=== PATIENT | male | born 1960 | race Two or more races ===

== ENCOUNTER 2016-06-04 05:16 | Inpatient (IN) | payer OTHER ==
[~2016-06-04] VITALS: Ht 177.8 cm; Wt 95.3 kg
[2016-06-04] MEDS ORDERED: CEFAZOLIN SODIUM/DEXTROSE,ISO 50 ML IV ONE (05:57)
[2016-06-04] MEDS ORDERED: IV LR 1000 ML 1,000 ML ONE (05:57)
[2016-06-04] MEDS ORDERED: NEEDLELESS EST SET LARGE BORE 1 EA INFUS.SET MC ONE (05:58)
[2016-06-04] MEDS ORDERED: IV SET PRIMARY 1 EA INFUS.SET MC ONE (05:58)
[2016-06-04] MEDS ORDERED: SECONDARY IV SET 1 EA INFUS.SET MC ONE ×3 (05:58→22:53)
[2016-06-04] MEDS ORDERED: BUPIVACAINE MPF 0.5% W/EPI INJ 30 ML VIAL ONE (06:13)
[2016-06-04] MEDS ORDERED: KETOROLAC TROMETHAMINE INJ 30 MG/ML VIAL ONE (06:13)
[2016-06-04] MEDS ORDERED: BACITRACIN 50000 UNITS/VIAL ONE (06:13)
[2016-06-04] MEDS ORDERED: MIDAZOLAM HCL 2 MG/2ML VIAL ONE (06:41)
[2016-06-04] MEDS ORDERED: FENTANYL PF 100MCG/2ML AMPUL ONE ×2 (06:42→07:38)
[2016-06-04] MEDS ORDERED: ROCURONIUM BROMIDE 50 MG/5 ML ONE (06:53)
[2016-06-04] MEDS ORDERED: TRANEXAMIC ACID 3,000 MG in SODIUM CHLORIDE IRRIG SOLUTION 70 ML IR ONE (07:00)
[2016-06-04] MEDS ORDERED: HYDROMORPHONE INJ 2 MG/ML DISP.SYRIN ONE (08:33)
[2016-06-04 09:00] VITALS: BP 119/90
--- NOTE | 2016-06-04 09:22 | NUR ---
RN AM NOTES RECEIVED PATIENT IN STABLE CONDITION FROM DAY SURGERY. MILD PAIN, ALERT AND ORIENTED X4, NO SOB OR DISTRESS NOTED. NO BLEEDING, WARMTH, DISCHARGE FROM SURGERY SITE. ALL NEEDS MET. AT BEDSIDE. VS: BP 119/92, P78, R18, T 98.4,SPO2 100% ON RA, PIV INTACT AND PATENT, WILL CONTINUE TO MONITOR.
[2016-06-04] MEDS ORDERED: IV LR 1000 ML 1,000 ML IV PRN (10:00)
[2016-06-04] MEDS ORDERED: HYDROCODONE/APAP 5/325MG 1 EACH TABLET PO PRN (10:00)
[2016-06-04] MEDS: HYDROMORPHONE 1 MG/1 ML DISP.SYRIN IV PRN ×4 (10:00→18:47)
[2016-06-04] MEDS ORDERED: BISACODYL SUPP (10 MG) 10 MG/SUPP.RECT SUPP.RECT RC PRN (10:00)
[2016-06-04] MEDS ORDERED: DOCUSATE SODIUM 250 MG CAPSULE PO PRN (10:00)
[2016-06-04] MEDS ORDERED: ONDANSETRON HCL/PF 4 MG/2 ML VIAL IVP PRN (10:00)
[2016-06-04] MEDS ORDERED: SENNOSIDES 8.6 MG TABLET PO PRN (10:00)
[2016-06-04] MEDS ORDERED: ACETAMINOPHEN 325 MG TABLET PO PRN (10:00)
[2016-06-04] MEDS ORDERED: TAMS-12 PO (10:12)
[2016-06-04] MEDS ORDERED: ASPI81TA2 PO (10:12)
[2016-06-04] MEDS ORDERED: ATOR20TA PO (10:12)
[2016-06-04] MEDS ORDERED: OMEP20TA20 PO (10:12)
[2016-06-04 11:14] LABS: CALCIUM, SERUM 8.4 mg/dL (8.5-10.1); CREATININE 1.1 mg/dL (0.6-1.3); POTASSIUM 4.7 mmol/L (3.5-5.1)
[2016-06-04 11:15] VITALS: BP 121/70
[2016-06-04] MEDS ORDERED: CLONIDINE HCL 0.1 MG TABLET PO PRN (13:00)
--- NOTE | 2016-06-04 13:00 | NUR ---
SCANNED DILAUDID TWICE, DID NOT REGISTER, ADMINISTERED MEDICATION FOR BREAKTHROUGH PAIN
[2016-06-04] MEDS ORDERED: diphenhydrAMINE HCL 25 MG CAPSULE PO PRN (13:30)
[2016-06-04] MEDS ORDERED: oxyCODONE IR immediate release 5 MG CAPSULE PO PRN (13:30)
[2016-06-04] MEDS ORDERED: MAGNESIUM HYDROXIDE 30 ML UDC PO PRN (13:30)
[2016-06-04] MEDS: ANCEF 1 GM/50 ML D5W IV SCH ×4 (15:26→22:58)
[2016-06-04 16:00] VITALS: BP 121/75
[2016-06-04] MEDS: DOCUSATE SODIUM 100 MG CAPSULE PO SCH (16:49)
--- NOTE | 2016-06-04 19:00 | NUR ---
RN PM NOTES PATIENT RESTING IN BED COMFORTABLE, WITH NO COMPLAINTS OF PAIN, SOB OR DISTRESS. NO IVF AT THIS TIME. HS BEDTIME MEDS AND ONGOING PAIN MANAGEMENT. STILL NEEDS TO HAVE A BM, BUT FLATUS PRESENT. APPETITE GOOD. DVT PUMPS ON, CHEM PROPHYLAXIS TOMORROW. PT TO HAVE HIM AMBULATE TOMORROW. ADDUCTION WEDGE PILLOW IN PLACE. ALL NEEDS MET. WILL ENDORSE TO NEXT SHIFT.
--- NOTE | 2016-06-04 19:15 | NUR ---
RN OPEN NOTES RECEIVED PATIENT AWAKE IN BED. A/O X4. NO SIGNS OF DISTRESS OR DISCOMFORT. BREATHING EVEN AND UNLABORED. DENIES ANY PAIN AT THIS TIME. IV ACCESS IN L HAND PATENT AND INTACT, NO SIGNS OF REDNESS OR INFILTRATION. ABDUCTOR PILLOW IN PLACE. BED IN LOW LOCKED POSITION WITH SIDE RAILS X2. CALL LIGHT WITHIN REACH. WILL CONTINUE TO MONITOR.
[2016-06-04 20:00] VITALS: BP 123/72
[2016-06-04] MEDS ORDERED: IV SET PRIMARY PUMP SET 1 EA INFUS.SET MC ONE (21:07)
[2016-06-04] MEDS: PANTOPRAZOLE 40 MG TABLET.DR PO SCH (21:23)
[2016-06-04] MEDS: ZOLPIDEM TARTRATE 5 MG TABLET PO PRN (21:24)
--- NOTE | 2016-06-04 21:25 | NUR ---
RN NOTES ADMINISTERED AMBIEN 5MG PRN FOR INSOMNIA PER PATIENT REQUEST. WILL CONTINUE TO MONITOR.
[2016-06-04] MEDS ORDERED: IV NS 0.9% 250 ML IV ONE (22:53)
[2016-06-04] MEDS: HYDROCODONE/APAP 5/325MG 1 EACH TABLET PO PRN (22:59)
--- NOTE | 2016-06-04 23:00 | NUR ---
RN NOTES ADMINISTERED NORCO 5/325 2TAB PRN FOR RIGHT HIP PAIN 08/09. WILL CONTINUE TO MONITOR.
--- NOTE | 2016-06-05 02:53 | NUR ---
RN CLOSING NOTES PATIENT RESTING IN BED. NO SIGNS OF DISTRESS OR DISCOMFORT. BREATHING EVEN AND UNLABORED. DENIES ANY PAIN AT THIS TIME. IV ACCESS IN L HAND PATENT AND INTACT, NO SIGNS OF REDNESS OR INFILTRATION. ABDUCTOR PILLOW IN PLACE. DRESSING ON R HIP C/D/I. ALL NEEDS MET. BED IN LOW LOCKED POSITION WITH SIDE RAILS X2. CALL LIGHT WITHIN REACH. WILL ENDORSE TO RORY MEIER FOR MYRIAM.
--- NOTE | 2016-06-05 03:00 | NUR ---
TELE COKE WORKER INITIAL NOTES CHECKED PT AFTER GOT REPORT FROM NURSE [place], FOR CONTINUITY OF CARE. SLEEPING COMFORTABLY IN BED WITHOUT ANY DISCOMFORT NOTED. WILL CONTINUE TO MONITOR. PLACE CALL LIGHT AT REACH. WILL CONTINUE TO MONITOR.
[2016-06-05] MEDS: HYDROCODONE/APAP 5/325MG 1 EACH TABLET PO PRN ×2 (04:56→12:43)
--- NOTE | 2016-06-05 04:56 | NUR ---
MS HARDEEP NOTES PT CALLED. CO RIGHT HIP PAIN , NORCO TABLET GIVEN ORDERED. ALSO COMPLAINING OF CONSTIPATION , PRUNE JUICE OFFERED SERVED. WILL CONTINUE TO MONITOR.
[2016-06-05 06:14] LABS: HEMOGLOBIN 12.6 g/dL (13.5-17.5)
[2016-06-05] MEDS: MAG HYDROX/AL HYDROX/SIMETH 30 ML UDC PO PRN ×2 (07:00→23:15)
--- NOTE | 2016-06-05 07:30 | NUR ---
MS WIRE WINDING MACHINE OPERATOR CLOSING NOTES PT AWAKE AND WATCHING TV, FEELS BETTER AFTER MAALOX GIVEN FOR UPSET STOMACH. ALL DUE MEDS GIVEN , STABLE MALOU THE NIGHT. AND SLEPT WELL ENDORSE TO AM NURSE FOR CONTINUITY OF CARE.
--- NOTE | 2016-06-05 07:35 | NUR ---
MS RN OPENING NOTE PATIENT IS AWAKE ALERT AND ORIENTED x4. NO PAIN AT THIS TIME. NO SOB OR DISTRESS NOTED. SAFETY MEASURES IMPLEMENTED. CALL LIGHT WITHIN REACH. BED LOCKED IN LOWEST POSITION WITH SIDERAILS UP x2. IV INTACT AND PATENT NO REDNESS OR SWELLING NOTED. USES URINAL AT BEDSIDE. REGULAR DIET. WILL HAVE PHYSICAL THERAPY AND WOUND CONSULT. WILL CONTINUE TO MONITOR
[2016-06-05 08:00] VITALS: BP 121/75
[2016-06-05] MEDS: ASPIRIN 81 MG TAB.CHEW PO SCH (08:44)
[2016-06-05] MEDS: TAMSULOSIN 0.4 MG CAP.SR.24H PO SCH (08:44)
[2016-06-05] MEDS: ATORVASTATIN 10 MG TABLET PO SCH (08:44)
[2016-06-05] MEDS: DOCUSATE SODIUM 100 MG CAPSULE PO SCH ×2 (08:44→16:50)
[2016-06-05] MEDS: ENOXAPARIN SODIUM 40 MG/0.4 ML DISP.SYRIN SQ SCH (08:58)
[2016-06-05 13:06] LABS: CALCIUM, SERUM 8.6 mg/dL (8.5-10.1)
[2016-06-05 16:00] VITALS: BP 126/69
[2016-06-05] MEDS ORDERED: oxyCODONE IR immediate release 5 MG CAPSULE PO PRN (16:30)
[2016-06-05] MEDS: ACETAMINOPHEN 325 MG TABLET PO SCH (17:01)
[2016-06-05] MEDS ORDERED: HYDROMORPHONE 1 MG/1 ML DISP.SYRIN IV PRN (18:00)
--- NOTE | 2016-06-05 18:26 | NUR ---
MS RN CLOSING NOTE PATIENT IS AWAKE ALERT AND ORIENTED x4. NO PAIN AT THIS TIME. NO SOB OR DISTRESS NOTED. ALL DUE MEDICATION GIVEN ORDERED. CALL LIGHT WITHIN REACH AT ALL TIMES. SAFETY MEASURES IMPLEMENTED. ABLE TO COMMUNICATE NEEDS. POSSIBLE DISCHARGE TOMORROW. WAS SEEN BY PHYSICAL THERAPY, PATIENT CAN AMBULATE WITH STANDBY ASSISTANCE TOLERATED. BED LOCKED IN LOWEST POSITION WITH SIDERAILS UP x2. ABDUCTOR PILLOW IN PLACE. IV INTACT AND PATENT NO REDNESS OR SWELLING NOTED. WILL ENDORSE TO GANG MOWER OPERATOR NURSE.
--- NOTE | 2016-06-05 19:20 | NUR ---
RN OPEN NOTES RECEIVED PATIENT AWAKE IN BED. A/O X4. NO SIGNS OF DISTRESS OR DISCOMFORT. BREATHING EVEN AND UNLABORED. DENIES ANY PAIN AT THIS TIME. IV ACCESS IN L HAND PATENT AND INTACT, NO SIGNS OF REDNESS OR INFILTRATION. DENIES ANY PAIN AT THIS TIME. ABDUCTOR PILLOW IN PLACE. BED IN LOW LOCKED POSITION WITH SIDE RAILS X2. CALL LIGHT WITHIN REACH. WILL CONTINUE TO MONITOR.
--- NOTE | 2016-06-05 20:07 | NUR ---
MS HARDEEP INITIAL NOTES RECEIVED REPORT FROM NURSE MELISSA/RN FOR CONTINUITY OF CARE. PT RESTING COMFORTABLY IN BED WITHOUT ANY ACUTE DISCOMFORT OR DISTRESS NOTED. DRESSING DRY AND INTACT. KEPT HIM WARM AND COMFORTABLE AT ALL TIMES. WILL CONTINUE TO MONITOR. PLACE CALL LIGHT AT REACH.
[2016-06-05 20:50] VITALS: BP 116/69
[2016-06-05] MEDS: ZOLPIDEM TARTRATE 5 MG TABLET PO PRN (21:23)
[2016-06-05] MEDS: PANTOPRAZOLE 40 MG TABLET.DR PO SCH (21:23)
--- NOTE | 2016-06-05 21:23 | NUR ---
MS HARDEEP NOTES AMBIEN GIVEN PER PT REQUESTED. SAFETY PRECAUTION IMPLEMENTED AND PT AWARE OF IT. WILL CONTINUE TO MONITOR. PLACE ALL LIGHT AT REACH.
--- NOTE | 2016-06-06 | NUR ---
SURGICAL TECHNOLOGY INSTRUCTOR/NOTES PT SLEEPING AT THIS TIME BUT AROUSES TO STIMULI AND TOUCH, NOT IN ANY ACUTE DISTRESS NOTED. KEPT HIM COMFORTABLE AT ALL TIMES. PLACE CALL LIGHT AT REACH.
[2016-06-06] MEDS: ACETAMINOPHEN 325 MG TABLET PO SCH ×2 (00:06→06:00)
[2016-06-06] MEDS: ZOLPIDEM TARTRATE 5 MG TABLET PO PRN (02:08)
--- NOTE | 2016-06-06 02:08 | NUR ---
CYBER LEGAL ADVISOR/NOTES PT WOKE UP AND SAYING IF HE CAN HAVE ANOTHER SLEEP MED BECAUSE ITS DIFF FOR HIM TO BACK TO SLEEP. KEPT HIM WARM AND COMFORTABLE AT ALL TIMES. PLACE CALL LIGHT AT REACH.
--- NOTE | 2016-06-06 07:20 | NUR ---
RN MS NOTES PATIENT AMBULATES ON THE HALLWAY WITH WALKER AND AT HIS SIDE, DENIES PAIN OR DISCOMFORT AT THIS TIME, NO S/SX OF DISTRESS NOTED, SAFETY MEASURES IN PLACED, CALL LIGHT WITHIN REACH, NEEDS ATTENDED AND MET, WILL CONTINUE TO MONITOR.
--- NOTE | 2016-06-06 07:35 | NUR ---
ICT BUSINESS DEVELOPMENT MANAGER/CLOSING NOTES PT AWAKE AND ALERT STARTED WALKING WITH WALKER ACCOMPANIED BY HIS , NO SIGNS OF ANY DISCOMFORT NOTED. ALL DUE MEDS GIVEN AND ALL NEEDS MET. STABLE MALOU THE NIGHT EXCEPT HE STATED HE FEEL SOME HALLUCINATION AFTER THE SLEEP MEDS GIVEN. BUT I'M OK NOW. "THANK YOU FOR YOUR HELPED THE AND PT STATED. ENDORSE TO AM NURSE.
[2016-06-06 08:00] VITALS: BP 110/67
[2016-06-06] MEDS: DOCUSATE SODIUM 100 MG CAPSULE PO SCH (08:26)
[2016-06-06] MEDS: ATORVASTATIN 10 MG TABLET PO SCH (08:26)
[2016-06-06] MEDS: TAMSULOSIN 0.4 MG CAP.SR.24H PO SCH (08:26)
[2016-06-06] MEDS: ASPIRIN 81 MG TAB.CHEW PO SCH (08:26)
[2016-06-06] MEDS: ENOXAPARIN SODIUM 40 MG/0.4 ML DISP.SYRIN SQ SCH (08:32)
[2016-06-06 08:39] VITALS: BP 110/67
--- NOTE | 2016-06-06 09:30 | NUR ---
RN MS NOTES PATIENT SEEN BY DR. BARBOSA, MADE AWARE OF VITAL SIGNS, NO NEW ORDER AT THIS TIME, PER MD, PATIENT WILL SET UP HOME HEALTH OF CHOICE AT [facility].
--- NOTE | 2016-06-06 10:15 | NUR ---
RN MS NOTES PATIENT SEEN BY SAM HERBERT, DRESSING CHANGED, STABLE FOR DISCHARGE, DR. SHAFFER AWARE.
--- NOTE | 2016-06-06 11:26 | NUR ---
RN MS NOTES PATIENT RECEIVED DISCHARGE INSTRUCTIONS AND VERBALIZED UNDERSTANDING, PATIENT IN STABLE CONDITION, NO DISTRESS NOTED, SKIN ASSESSMENT COMPLETED, PHOTOS TAKEN OF RIGHT HIP INCISION, NO S/SX OF INFECTION NOTED, PATIENT DENIES PAIN AT THIS TIME, HOME HEALTH WILL BE SET UP BY THE PATIENT AT [facility], WILL F/U WITH DR. DUGAN IN 1 WEEK, BELONGINGS LIST SIGNED, PIV REMOVED WITH NO BLEEDING, LEFT FACILITY AT 1126.
== END 2016-06-06 11:30 | disposition home or self-care (01) | DRG 470 ==
LOC: DS 05:16 → MED 07:14
PROVIDERS: ADMIT Internal Medicine; ATTEND Internal Medicine
PROC: 0SR9019 Replacement of Right Hip Joint with Metal Synthetic Substitute, Cemented, Open Approach (ICD-10-PCS; principal; 2016-06-04 07:32)
DX: M16.11 Unilateral primary osteoarthritis, right hip (principal); N40.0 Benign prostatic hyperplasia without lower urinary tract symptoms; I10 Essential (primary) hypertension; E78.5 Hyperlipidemia, unspecified; E66.9 Obesity, unspecified; Z68.30 Body mass index [BMI] 30.0-30.9, adult; E78.00 Pure hypercholesterolemia, unspecified; K21.9 Gastro-esophageal reflux disease without esophagitis; Z87.891 Personal history of nicotine dependence; Z88.5 Allergy status to narcotic agent; Z96.642 Presence of left artificial hip joint
CPT/HCPCS: 36415; 80048-TC; 85027-TC; 86850-TC; 86921-TC; 87081-TC; 97001-TC; 97110-TC; 97116-TC; 97530-TC; A4217; J0690; J1170; J1650; J1885; J2250; J3010; J3490; J7050; J7060; J7120